=== PATIENT | female | born 1990 | race African-American/Black ===

== ENCOUNTER 2016-08-30 10:10 | Emergency (ER) | payer OTHER ==
[2016-09-03 11:57] LABS: CHLAMYDIA TRACH Not Detected (Not Detected); N GONOR Detected (Not Detected)
== END 2016-08-30 11:43 | disposition home or self-care (01) ==
LOC: CED 10:10
PROVIDERS: Physician Assistant
DX: N89.8 Other specified noninflammatory disorders of vagina (principal)
CPT/HCPCS: 84703; 87491; 87591; 87808; 87905; 99284

== ENCOUNTER 2016-09-03 23:03 | Emergency (ER) | payer OTHER | END 2016-09-03 23:34 | disposition home or self-care (01) | LOC: CFTX 23:03 | DX: A54.9 Gonococcal infection, unspecified (principal); Z91.040 Latex allergy status | CPT/HCPCS: 96372; 99283; J0696 ==